=== PATIENT | male | born 1960 | race Caucasian/White ===

== ENCOUNTER 2024-10-21 08:16 | Outpatient (CLI) | payer OTHER, SELFPAY ==
--- NOTE | ~2024-10-21 | US_ITS ---
EXAMINATION: US aorta [facility] DATE: 10/21/2024 08:34 UPKEEP WORKER INDICATION: Screening for abdominal aortic aneurysm. TECHNIQUE: Grayscale, color Doppler, and pulsed Doppler images of the aorta and common iliac arteries were obtained. COMPARISON: None. FINDINGS: The proximal aorta measures 2.1 cm greatest sagittal dimension. The mid aorta measures 1.7 cm greates t sagittal dimension. The distal aorta measures 1.4 cm greatest sagittal dimension. The right common internal iliac artery measures 1.2 cm. The left common iliac artery measures 1.2 cm. IMPRESSION: 1. Normal caliber aorta without aneurysm. Reviewed, dictated and finalized at location B. EP WORKER
== END 2024-10-21 08:17 | disposition home or self-care (01) ==
LOC: MICIMG 08:20
PROVIDERS: PCP Internal Medicine; Visit Provider Nurse Practitioner Family
DX: Z13.6 Encounter for screening for cardiovascular disorders (principal)
CPT/HCPCS: 76706

== ENCOUNTER 2025-10-02 10:09 | Outpatient (CLI) | payer MEDICARE, SELFPAY ==
--- NOTE | ~2025-10-02 | MR_ITS ---
EXAMINATION: MR knee RT wo con DATE: 10/02/2025 11:02 INDICATION: Hyperextension injury of the right knee 2 months ago. Persistent medial pain and swelling. TECHNIQUE: Magnetic resonance imaging (MRI) of the right knee was performed without intravenous contrast. Sequences included axial PD-weighted FS FSE, coronal PD-weighted FSE and PD-weighted FS FSE, sagittal PD-weighted FSE, and sagittal T2-weighted FS FSE. COMPARISON: None. FINDINGS: No acute bony lesions on both sides of the knee joint. Lateral meniscus shows no acute abnormalities. Mild degenerative changes of mid lateral meniscus without displaced tear. Anterior and posterior cruciate ligaments are intact. 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 No displaced fragments are seen. Medial extrusion of the mid medial meniscus. Collateral ligaments are intact. Quadriceps and patellar tendons are intact. Effusion in the knee joint. No osteochondral loose bodies are seen. IMPRESSION: 1. No acute bony lesions at the right knee. 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 No displaced fragments are seen. Medial extrusion of the mid medial meniscus. 3. Moderate-sized effusion in the knee joint. No evidence of osteochondral loose bodies. Reviewed, dictated and finalized at location T. K GUARD IMPRESSION: 1. No acute bony lesions at the right knee. 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 No displaced fragments are seen. Medial extrusion of the mid medial meniscus. 3. Moderate-sized effusion in the knee joint. No evidence of osteochondral loos e bodies.
== END 2025-10-02 10:10 | disposition home or self-care (01) ==
LOC: GOSHIMG 10:10
PROVIDERS: PCP Physician Assistant Surgical; Visit Provider Physician Assistant Surgical
DX: S83.91XD Sprain of unspecified site of right knee, subsequent encounter (principal); X58.XXXD Exposure to other specified factors, subsequent encounter; M23.321 Other meniscus derangements, posterior horn of medial meniscus, right knee; M23.231 Derangement of other medial meniscus due to old tear or injury, right knee; M17.11 Unilateral primary osteoarthritis, right knee; M25.461 Effusion, right knee
CPT/HCPCS: 73721